=== PATIENT | male | born 1955 | race Caucasian/White ===

== ENCOUNTER 2017-07-09 11:46 | Emergency (ER) | payer OTHER ==
[~2017-07-09] VITALS: Ht 177.8 cm; Wt 112.0 kg
[~2017-07-09 11:46] MED LIST: AMIT25TA20 PO; ASPI325T PO; CARD2TAB PO; COMBAER INH; CYCL5TAB PO; DICL-86 PO; GLIP5 PO; HYDR-2768 PO; IBUP-232 PO; LAMO100 PO; NEUR800T PO; PRIN20TA2 PO; SERT100 PO; SIMV20 PO; TRAM50 PO; VIST50CA PO; VITA10002 PO; [UNRECOGNIZED DRUG - OTHER] IA
[2017-07-09 12:11] VITALS: BP 177/112; PULSE 76; RESP 17; TEMP 97.8; O2SAT 96
[2017-07-09] MEDS ORDERED: PERC5TAB12 PO (12:29)
[2017-07-09] MEDS ORDERED: PRED20 PO (12:29)
[2017-07-09] MEDS ORDERED: predniSONE 20 MG TAB PO ONE (12:30)
--- NOTE | 2017-07-09 12:34 | PD ---
HPI Chief Complaint: Musculoskeletal Complaint Time Seen by Provider: 12:16 Travel History International Travel<30 days: No Contact w/Intl Traveler<30days: No Traveled to known affect area: No History of Present Illness HPI 61-year-old male patient of the [facility], presents emergency department with worsening acute on chronic left hip and knee pain. Patient states he is currently waiting for heparin knee replacement through the [facility]. Patient denies any specific acute injury. Patient is currently on gabapentin 800 mg 3 times daily as well as diclofenac 75 mg twice daily without improvement. Patient currently states difficulty ambulation and sleeping secondary to pain. Patient has no fever, chills, or other symptoms. Pain is currently 9 out of 10 and worse with weightbearing. Patient is allergic to felodipine, penicillin, and horse-containing products. Narcotics are listed, however patient states he can take opioids. PFSH Past Medical History Blood Disorders: No Bipolar Disorder: Yes Anxiety: Yes Depression: Yes Cancer: No Cardiovascular Problems: Yes High Cholesterol: Yes COPD: Yes Diabetes: Yes Endocrine: Yes Genitourinary: Yes Hypertension: Yes Immune Disorder: No Musculoskeletal: Yes (CARPAL TUNNEL) Neurologic: Yes Psychiatric: Yes Reproductive: No Respiratory: Yes Migraines: Yes Past Surgical History Abdominal Surgery: Yes (IMBILICAL HERNIA REPAIR, HERNIA ON RIGHT) Social History Alcohol Use: No Tobacco Use: Yes (1 PPD) Substance Use: No Allergies-Medications (Allergen,Severity, Reaction): Coded Allergies: Horse/Equine Containing Products (Unverified Allergy, Severe, 07/09/17) felodipine (Unverified Allergy, Severe, 07/09/17) penicillin G (Unverified Allergy, Severe, 07/09/17) Uncoded Allergies: NARCOTICS (Allergy, Severe, 09/27/09) RECOVERING Reported Meds & Prescriptions Reported Meds & Active Scripts Active Percocet (Oxycodone-Acetaminophen) 5-325 mg Tab 1-2 Tab PO Q6H PRN Prednisone 20 Mg Tab 20 Mg PO BID 7 Days Motrin (Ibuprofen) 600 Mg Tab 600 Mg PO TID Reported Aspirin 325 mg (Aspirin) 325 Mg Tab 325 Mg PO DAILY Hctz (Hydrochlorothiazide) 25 Mg Tab 25 Mg PO DAILY Ultram (Tramadol HCl) 50 Mg Tab 100 Mg PO BIDPRN FOR PAIN Zocor (Simvastatin) 20 Mg Tab 20 Mg PO HS Zoloft (Sertraline HCl) 100 Mg Tab 100 Mg PO DAILY Prinivil (Lisinopril) 20 Mg Tab 20 Mg PO DAILY Lamictal (Lamotrigine) 100 Mg Tab 100 Mg PO BID Vistaril 50 MG CAP (Hydroxyzine Pamoate) 50 Mg Cap 50 Mg PO TID [Hyaluronate] 2 Ml IA WEEKLY Glucotrol (Glipizide) 5 Mg Tab 2.5 Mg PO BID Neurontin (Gabapentin) 800 Mg Tab 800 Mg PO TID Cardura 2 mg (Doxazosin Mesylate) 2 Mg Tab 2 Mg PO HS Voltaren (Diclofenac Sodium) 75 Mg Tabec 75 Mg PO BID Flexeril (Cyclobenzaprine HCl) 5 Mg Tab 5 Mg PO HSPRN Flexeril (Cyclobenzaprine HCl) 5 Mg Tab 5 Mg PO BIDPRN Vitamin B12 (Cyanocobalamin) 1,000 Mcg Tab 1,000 Mcg PO DAILY Elavil (Amitriptyline HCl) 25 Mg Tab 25 Mg PO HS Combivent (Albuterol/Ipratropium) 14.7 Gm Aer 2 Puff INH Q6HPRN FOR WHEEZING Review of Systems Except as stated in HPI: all other systems reviewed are Neg General / Constitutional: No: Fever Eyes: No: Visual changes HENT: No: Headaches Cardiovascular: No: Chest Pain or Discomfort Respiratory: No: Shortness of Breath Gastrointestinal: No: Abdominal Pain Genitourinary: No: Dysuria Musculoskeletal: Positive: Arthralgias, Limited ROM, Pain Skin: No Rash Neurologic: No: Weakness Psychiatric: No: Depression Endocrine: No: Polydipsia Hematologic/Lymphatic: No: Easy Bruising Physical Exam Narrative GENERAL: Patient appears in mild to moderate distress. SKIN: Warm and dry. Normal color. Normal turgor. HEAD: Atraumatic. Normocephalic. EYES: Pupils equal and round. No scleral icterus. No injection or drainage. ENT: No nasal bleeding or discharge. Mucous membranes pink and moist. Pharynx is clear. Airways patent. NECK: Trachea midline. No JVD. Supple nontender. CARDIOVASCULAR: Regular rate and rhythm. RESPIRATORY: No accessory muscle use. Clear to auscultation. Breath sounds equal bilaterally. GASTROINTESTINAL: Abdomen soft, non-tender, nondistended. Hepatic and splenic margins not palpable. MUSCULOSKELETAL: Extremities without clubbing, cyanosis, or edema. No obvious deformities. Patient has decreased range of motion in the left knee and hip consistent with osteoarthritis. There is no significant laxity. He does not have straight leg raise pain consistent with sciatica. Strength is intact but limited by pain. NEUROLOGICAL: Awake and alert. No obvious cranial nerve deficits. Motor grossly within normal limits. Five out of 5 muscle strength in the arms and legs. Normal speech. PSYCHIATRIC: Appropriate mood and affect; insight and judgment normal. Data Data Last Documented VS Vital Signs Date Time Temp Pulse Resp B/P (MAP) Pulse Ox O2 Delivery O2 Flow Rate FiO2 07/09/17 12:11 97.8 76 17 177/112 (133) 96 Orders Orders Prednisone (Deltasone) (07/09/17 12:30) Ed Discharge Order (07/09/17 12:39) [facility] Medical Decision Making Medical Screen Exam Complete: Yes Emergency Medical Condition: Yes Medical Record Reviewed: Yes Differential Diagnosis Acute on chronic left hip pain. Acute on chronic left knee pain. Osteoarthritis. Narrative Course Patient is given 60 mg prednisone p.o. now. Patient continued on prednisone 40 mg twice daily for 7 days. Patient is given Percocet 5/325 1-2 every 6 hours as needed pain, #20. [facility] Diagnosis Primary Impression: Pain of left hip joint Additional Impressions: Left knee pain Osteoarthritis Patient Instructions: Arthralgia (ED), General Instructions, Hip Pain (ED), Knee Pain (ED) Additional Instructions: Patient is given 60 mg prednisone p.o. now. Patient continued on prednisone 40 mg twice daily for 7 days. Patient is given Percocet 5/325 1-2 every 6 hours as needed pain, #20. [facility]. Med/Other Pt SpecificInfo: Prescription(s) given Scripts Oxycodone-Acetaminophen (Percocet) 5-325 mg Tab 1-2 TAB PO Q6H Y for PAIN, #20 TAB 0 Refills Prov: Shine Kate MD 07/09/17 Prednisone (Prednisone) 20 Mg Tab 20 MG PO BID for 7 Days, #14 TAB 0 Refills Prov: Shine Kate MD 07/09/17 Disposition: 01 DISCHARGE HOME Condition: Stable Marcelino Belcher Jul 09, 2017 12:34
== END 2017-07-09 12:56 | disposition home or self-care (01) ==
LOC: NEPK 11:46
DX: M25.552 Pain in left hip (principal); M25.562 Pain in left knee; G89.29 Other chronic pain; M19.90 Unspecified osteoarthritis, unspecified site; E11.9 Type 2 diabetes mellitus without complications; I10 Essential (primary) hypertension; J44.9 Chronic obstructive pulmonary disease, unspecified; Z88.0 Allergy status to penicillin; Z72.0 Tobacco use
CPT/HCPCS: 99283; J7512